=== PATIENT | male | born 1945 | race Caucasian/White ===

== ENCOUNTER 2022-10-28 11:52 | Outpatient (CLI) | payer MEDICARE, BC | END 2022-10-28 23:59 | disposition home or self-care (01) | LOC: 64 CT 11:52 | PROVIDERS: ATTEND Podiatrist Foot & Ankle Surgery | DX: S82.432A Displaced oblique fracture of shaft of left fibula, initial encounter for closed fracture (principal); S82.52XA Displaced fracture of medial malleolus of left tibia, initial encounter for closed fracture; M79.89 Other specified soft tissue disorders; M31.9 Necrotizing vasculopathy, unspecified; M25.472 Effusion, left ankle; X58.XXXA Exposure to other specified factors, initial encounter; Y93.89 Activity, other specified; Y92.89 Other specified places as the place of occurrence of the external cause; Y99.8 Other external cause status | CPT/HCPCS: 73700 ==